=== PATIENT | female | born 1935 | race Caucasian/White ===

== ENCOUNTER → 2016-08-27 | Outpatient (CLI) | payer MEDICARE, OTHER ==
[~2016-08-27] MED LIST: ASP81TEC PO; CATHETER FLUSH 10 ML SYR IV PRN; CLPD75T PO; FERR159T3 PO; FEXO1TAB49 PO; KETO-22 PO; LEVO250T7 PO; LISI2.5T85 PO; LORA-794 PO; MTP25TSR PO; MULT-608 PO; NIA500ERT PO; OXYC-12 PO; REGADENOSON 0.4 MG/5 ML SYR (LEXISCAN) IV ONE; SMV10T PO
[2016-08-27 09:26] VITALS: BP 124/59
[2016-08-27 09:30] VITALS: BP 149/62
[2016-08-27 09:43] VITALS: BP 166/75
[2016-08-27 09:46] VITALS: BP 171/84
--- NOTE | 2016-08-28 07:41 | STRESS TEST ---
PROCEDURE PHYSICIAN: KAILEY ROSAS DATE OF PROCEDURE: 08/27/2016 RESTING AND POST REGADENOSON TECHNETIUM 99M TETROFOSMIN SPECT CT IMAGING: ORDERING PHYSICIAN: Mima Morales APRN. PRIMARY PHYSICIAN: Dr. Oconnor OTHER PHYSICIAN: Dr. Rosas. CLINICAL DIAGNOSES: 1. Coronary artery disease. 2. Shortness of breath. Baseline images were carried out after injection of 10.58 mCi of technetium 99m tetrofosmin. This was followed by 0.4 mg of regadenoson and 32.7 mCi of technetium 99m tetrofosmin for stress imaging. Initially, the test was started as a treadmill exercise study but she was not able tolerate it because of dizziness and the study was then changed to a pharmacologic myocardial perfusion imaging. She had mild shortness of breath following regadenoson infusion, which resolved in a few minutes. Review of images at rest and following stress, does not indicate any distinct perfusion defects consistent with myocardial ischemia or infarction. Gated images show normal global left ventricular systolic function with normal regional wall motion. Left ventricular ejection fraction is calculated to be 80%. Left ventricular end-diastolic volume is 16 mL. TID is absent (1.01). CONCLUSIONS: 1. No evidence of any significant myocardial ischemia or infarction on this study. 2. Normal regional wall motion. 3. Normal to hyperdynamic global left ventricular systolic function with a calculated ejection fraction of 80%. Job ID: [id number] Dictated Date: 08/27/2016 18:15:23 Lead Fire Protection Engineer Date: 08/28/2016 07:38:04 / [email or web address]
== END ==
LOC: CARD 08:12
PROVIDERS: ATTEND Nurse Practitioner Family
DX: I25.10 Atherosclerotic heart disease of native coronary artery without angina pectoris (principal); I25.5 Ischemic cardiomyopathy; R06.02 Shortness of breath
CPT/HCPCS: 78452; 93017

== ENCOUNTER → 2017-09-11 | Outpatient (CLI) | payer MEDICARE, OTHER ==
[~2017-09-11] MED LIST changes: -CATHETER FLUSH 10 ML SYR IV PRN; -REGADENOSON 0.4 MG/5 ML SYR (LEXISCAN) IV ONE
--- NOTE | 2017-09-11 12:04 | Diagnostic Imaging Report ---
INDICATION: Chronic left hip pain. TIME OF EXAM: 12:06 PM FINDINGS: Two views of left hip demonstrate normal femoral acetabular alignment. The joint space is well maintained. The femoral head and neck are intact. No fractures are seen. IMPRESSION: No acute bony abnormality is detected. Dictated by: Dictated on workstation # [id number]
--- NOTE | 2017-09-11 12:34 | Diagnostic Imaging Report ---
INDICATION: Chronic back pain. TIME OF EXAMINATION: 12:07 p.m. FINDINGS: There is some straightening of the normal lumbar lordotic curvature. The vertebral body heights are maintained. No acute compression fracture is seen. There is multilevel degenerative disc disease with variable disc space narrowing and marginal spurring, most significant at L4-L5 level. There also appears to be lower lumbar facet arthropathy. The aorta is heavily calcified. IMPRESSION: Lumbar spondylosis. No acute compression fracture is detected. Dictated by: Dictated on workstation # [id number]
--- NOTE | 2017-09-11 13:18 | Diagnostic Imaging Report ---
INDICATION: Postmenopausal. EXAMINATION: Bone mineral analysis of the lumbar spine and both hips was performed. COMPARISON: No prior studies are available for comparison. FINDINGS: The bone mineral density of the lumbar spine is 0.876 with a T score of -2.7. Bone mineral density of the left femoral neck is 0.705 with a T score of -2.4. Bone mineral density of the right femoral neck is 0.634 with a T score of -2.9. IMPRESSION: Findings consistent with osteoporosis of the lumbar spine and right femoral neck. There is osteopenia of the left femoral neck. Dictated by: Dictated on workstation # [id number]
== END ==
LOC: RAD 11:10
PROVIDERS: ATTEND Nurse Practitioner Family
DX: M85.88 Other specified disorders of bone density and structure, other site (principal); M47.816 Spondylosis without myelopathy or radiculopathy, lumbar region; Z78.0 Asymptomatic menopausal state
CPT/HCPCS: 72100; 73502; 77080

== ENCOUNTER → 2018-08-04 | Outpatient (CLI) | payer MEDICARE, OTHER ==
[~2018-08-04] VITALS: Ht 152.4 cm; Wt 58.1 kg
[~2018-08-04] MED LIST changes: +CATHETER FLUSH 10 ML SYR IV PRN; +REGADENOSON 0.4 MG/5 ML SYR (LEXISCAN) IV ONE
[2018-08-04 13:35] VITALS: BP 152/63
[2018-08-04 13:39] VITALS: BP 166/53
--- NOTE | 2018-08-05 09:24 | STRESS TEST ---
DATE OF SERVICE: 08/04/2018 RESTING AND POST REGADENOSON TECHNETIUM-99M TETROFOSMIN SPECT CT IMAGING ORDERING PHYSICIAN: Dr. Rosas. PRIMARY PHYSICIAN: Dr. Oconnor. CLINICAL DIAGNOSES: Coronary artery disease and shortness of breath. Baseline images were carried out after injection of 10.74 mCi technetium-99m Tetrofosmin. This was followed by 0.4 mg Regadenoson and 30.2 mCi of technetium-99m Tetrofosmin for stress imaging. The electrocardiogram showed sinus rhythm with subtle, nonspecific ST abnormality that did not change significantly with the Regadenoson infusion. The patient noted some shortness of breath and nausea following Regadenoson infusion, which resolved in a few minutes. Review of images at rest and following stress does not indicate any distinct perfusion defects consistent with significant myocardial ischemia or infarction. Gated images show normal global left ventricular systolic function and normal regional wall motion. Left ventricular ejection fraction is calculated to be 75%. CONCLUSIONS: 1. No evidence of significant myocardial ischemia or infarction is seen. 2. Normal regional wall motion. 3. Normal global left ventricular systolic function with a calculated ejection fraction of 75%. Job ID: [id number] DocumentID: [id number] Dictated Date: 08/05/2018 09:00:07 Control Room Technician Date: 08/05/2018 09:23:43 Dictated By: KAILEY ROSAS MD, MA, FACP, FACC,
== END ==
LOC: CARD 11:41
PROVIDERS: ATTEND Internal Medicine Cardiovascular Disease
DX: I25.10 Atherosclerotic heart disease of native coronary artery without angina pectoris (principal); I77.89 Other specified disorders of arteries and arterioles; R06.02 Shortness of breath; E78.2 Mixed hyperlipidemia; R53.83 Other fatigue
CPT/HCPCS: 78452; 93017

== ENCOUNTER → 2018-08-27 | Outpatient (CLI) | payer MEDICARE, OTHER ==
[~2018-08-27] MED LIST changes: -CATHETER FLUSH 10 ML SYR IV PRN; -REGADENOSON 0.4 MG/5 ML SYR (LEXISCAN) IV ONE
== END ==
LOC: CARD 10:59
PROVIDERS: ATTEND Internal Medicine Cardiovascular Disease
DX: I25.10 Atherosclerotic heart disease of native coronary artery without angina pectoris (principal); I77.9 Disorder of arteries and arterioles, unspecified; R06.02 Shortness of breath; E78.2 Mixed hyperlipidemia; R53.83 Other fatigue
CPT/HCPCS: 93306

== ENCOUNTER → 2022-09-24 | Outpatient (CLI) | payer MEDICARE, OTHER ==
[~2022-09-24] VITALS: Ht 2 cm; Wt 55.0 kg
[~2022-09-24] MED LIST changes: +CATHETER FLUSH 10 ML SYR IVP PRN; +REGADENOSON 0.4 MG/5 ML SYR (LEXISCAN) IV ONE
[2022-09-24 09:05] VITALS: BP 150/72
== END ==
LOC: CARD 07:18
PROVIDERS: ATTEND Nurse Practitioner Family
DX: I25.10 Atherosclerotic heart disease of native coronary artery without angina pectoris (principal)
CPT/HCPCS: 78452; 93017; A9502